=== PATIENT | female | born 1955 | race Caucasian/White ===

== ENCOUNTER 2018-07-27 16:15 | Emergency (ER) | payer OTHER, SELFPAY ==
[2018-07-27 16:16] VITALS: BP 168/103; PULSE 100; RESP 16; TEMP 36.3; O2SAT 99; BMI 41.5
--- NOTE | 2018-07-27 16:58 | CT_ITS ---
STUDY: CTA OF THE BRAIN REASON FOR EXAM: Female, 62 years old. Headache with vertigo. RADIATION DOSAGE (If Supplied By Facility): CTDIvol = ( 28.57 ) mGy, DLP = ( 1565.22 ) mGycm TECHNIQUE: CT angiography was performed with a multi-detector CT scanner. Data acquisition was obtained from the skull base through the vertex following intravenous administration of ml of . MIP images were reconstructed from the axial data set. Post-processing of the angiographic images was performed, with multiplanar reformation and 3D reconstruction. Individualized dose optimization techniques were used for this CT. COMPARISON: None. FINDINGS: CT brain: There is no intracranial mass, hemorrhage, or acute territorial infarct. There is moderate to marked mucosal thickening in the frontal, ethmoid, sphenoid, and maxillary sinuses. CTA brain: Normal bilateral petrous carotid arteries. Normal right cavernous carotid artery with a normal supraclinoid bifurcation. Normal left cavernous carotid artery with a normal supraclinoid bifurcation. A1 segment of the right anterior cerebral artery is hypoplastic. Normal left A1 segments of the anterior cerebral artery. Normal intact anterior communicating artery (ACOM). Normal bilateral A2 segments of the anterior cerebral arteries. Normal right M1 and M2 segments of the middle cerebral arteries, with a normal M1 bifurcation. Normal left M1 and M2 segments of the middle cerebral arteries, with a normal M1 bifurcation. There is non-visualization of the right posterior communicating artery (PCOM). Normal left posterior communicating artery (PCOM). Normal bilateral vertebral arteries. Normal basilar artery with a normal basilar bifurcation. The visualized bilateral superior cerebellar (SCA) arteries are normal. Normal bilateral P1, P2 and visualized P3 segments of the posterior cerebral arteries. There is no demonstrated aneurysm of the [place]. There is no demonstrated abnormality of the visualized brain. CT/CTA Head W/WO Contrast IMPRESSION: Normal [place] without a demonstrated aneurysm or significant stenosis. Electronically Signed: Ling Arnett MD at 19:07 EDT Tel , Service support ,
--- NOTE | 2018-07-27 16:58 | CT_ITS ---
STUDY: CTA NECK WITH CONTRAST REASON FOR EXAM: Female, 62 years old. Headache with vertigo. RADIATION DOSAGE (If Supplied By Facility): CTDIvol = ( 28.57 ) mGy, DLP = ( 1565.22 ) mGycm TECHNIQUE: CT angiography with multi-detector data acquisition was performed from the aortic arch to the skull base following intravenous administration of 100ML ml of Isovue 370 contrast. MIP images were reconstructed from the axial data set. Post-processing of the angiographic images was performed, with multiplanar reformation and 3D reconstruction. Individualized dose optimization techniques were used for this CT. COMPARISON: None. FINDINGS: AORTIC ARCH: Normal visualized aortic arch. Normal origins of the brachiocephalic, left common carotid, and left subclavian arteries. RIGHT CAROTID ARTERIES: Normal right common carotid artery (CCA). Normal right common carotid bulb. Normal origin of the right internal carotid (ICA) artery without a hemodynamically significant stenosis. Normal visualized cervical portion of the right internal carotid artery. Normal origin of the right external carotid artery (ECA). LEFT CAROTID ARTERIES: Normal left common carotid artery (CCA). Normal left common carotid bulb. There is mild calcified plaque formation of the origin of the left internal carotid artery with no stenosis. Normal visualized cervical portion of the left internal carotid artery. Normal origin of the left external carotid artery (ECA). VERTEBRAL ARTERIES: Normal bilateral vertebral arteries. CT/CTA Neck W/WO Contrast IMPRESSION: Normal bilateral cervical carotid and vertebral arteries. Electronically Signed: Ling Arnett MD at 19:10 EDT Tel , Service support ,
--- NOTE | 2018-07-27 17:35 | ED.VISSUMM ---
- ER Visit Summary Date of Service: 07/27/18 Chief Complaint: Headache, vertigo History of Present Illness: The patient is a 62 F presenting with headache, vertigo. She states it started on July 14. She woke up with vertigo symptoms. She was seen by Dr. Ocasio that day. She had Marcelle maneuver performed and was put on meclizine. She states that this improved her symptoms but it continued. Her headache persisted. She took a friend's Valium which also improved her vertigo. She continues to have the headache. She went to urgent care today and was sent to the ED for further evaluation. She states that the vertigo is positional and worsens when she leans forward or turns her head. She denies fever or neck pain. Denies numbness or weakness. Denies vision or speech changes. Physical Examination: Vitals are stable. Patient is afebrile. Alert no acute distress. HEENT exam is unremarkable. Neck is supple. No meningismus Lungs are clear and equal bilaterally. Heart is regular rate and rhythm. Abdomen is soft nontender nondistended. Extremities are unremarkable. Skin is warm and dry. No focal neurologic deficit. Normal strength and sensation. NIH 0. Remainder of exam is unremarkable. Emergency Department Course and Treatment: Patient was given Reglan, Benadryl IV. She was given Valium p.o. CTA head shows normal [place] without a demonstrated aneurysm or significant stenosis. CTA neck shows normal bilateral cervical carotid and vertebral arteries. On reevaluation, patient has improvement of her symptoms. She is given a prescription for short course of Valium. She is advised to follow-up with Dr. Ocasio and her primary care physician. Advised return to ED if worsening complaints. Disposition: Discharge home Impression: Headache, positional vertigo This note was generated with [employer] dictation software. It may contain incorrect words, spelling, and punctuation that were not noted in review of the chart prior to signing ED Disposition - Plan for ED Patient: Chief Complaint: Headache Instructions: ED BPV Vertigo, ED Cephalgia Unspecified Prescriptions: Diazepam [Valium] 2 mg PO TID PRN PRN #10 tablet PRN Reason: Vertigo Referrals: Yesenia Suárez MD [Primary Care Provider] -
--- NOTE | 2018-07-27 17:38 | ED.DCSUM_ITS ---
- ER Visit Summary Date of Service: 07/27/18 Chief Complaint: Headache, vertigo History of Present Illness: The patient is a 62 F presenting with headache, vertigo. She states it started on July 14. She woke up with vertigo symptoms. She was seen by Dr. Ocasio that day. She had Marcelle maneuver perform ed and was put on meclizine. She states that this improved her symptoms but it continued. Her headache persisted. She took a friend's Valium which also improved her vertigo. She continues to have the headache. She went to urgent care today and was sent to the ED for further evaluation. She states that the vertigo is positional and worsens when she leans forward or turns her head. She denies fever or neck pain. Denies numbness or weakness. Denies vision or speech changes. Physical Examination: Vitals are stable. Patient is afebrile. Alert no acute distress. HEENT exam is unremarkable. Neck is supple. No meningismus Lungs are clear and equal bilaterally. Heart is regular rate and rhythm. Abdomen is soft nontender nondistended. Extremities are unremarkable. Skin is warm and dry. No focal neurologic deficit. Normal strength and sensation. NIH 0. Remainder of exam is unremarkable. Emergency Department Course and Treatment: Patient was given Reglan, Benadryl IV. She was given Valium p.o. CTA head shows normal [place] without a demonstrated aneurysm or significant stenosis. CTA neck shows normal bilateral cervical carotid and vertebral arteries. On reevaluation, patient has improvement of her symptoms. She is given a prescription for short course of Valium. She is advised to follow-up with Dr. Ocasio and her primary care physician. Advised return to ED if worsening complaints. Disposition: Discharge home Impression: Headache, positional vertigo This note was generated with [employer] dictation software. It may contain incorrect words, spelling, and punctuation that were not noted in review of the chart prior to signing ED Disposition - Plan for ED Patient: Chief Complaint: Headache Instructions: ED BPV Vertigo, ED Cephalgia Unspecified Prescriptions: Diazepam [Valium] 2 mg PO TID PRN PRN #10 tablet PRN Reason: Vertigo Referrals: Yesenia Suárez MD [Primary Care Provider] -
[2018-07-27] MEDS: Metoclopramide 10 MG/2 ML Vial 5 MG IV (17:47)
[2018-07-27] MEDS: DiphenhydrAMINE 50 MG/ML Syringe 25 MG IV (17:49)
[2018-07-27] MEDS: diazePAM 5 MG Tablet PO (17:52)
[2018-07-27 18:15] LABS: Anion Gap 6 (5-15); BUN 20 mg/dL (7-18); Calcium,Total 9.3 mg/dL (8.5-10.1); Chloride 105 mmol/L (98-107); Creatinine, Serum 0.95 mg/dL (0.55-1.02); EST Glomerular Filtration Rate 63 mL/min (>60); Est Glom Filt Rate - Afr Amer 76 mL/min (>60); Estimated Creatinine Clearance 59.71 ml/min; Glucose 127 mg/dL (74-106); Potassium 3.6 mmol/L (3.5-5.1); Sodium Level 138 mmol/L (136-145)
--- NOTE | 2018-07-27 19:39 | ED.DEP ---
ED Disposition - Plan for ED Patient: Chief Complaint: Headache Instructions: ED Cephalgia Unspecified, ED BPV Vertigo Prescriptions: Diazepam [Valium] 2 mg PO TID PRN PRN #10 tablet PRN Reason: Vertigo Referrals: Yesenia Suárez MD [Primary Care Provider] -
[2018-07-27 19:57] VITALS: BP 183/91; PULSE 80; RESP 17; O2SAT 96
--- NOTE | 2018-07-27 19:58 | ED.RN ---
IV DC'ED, CATHETER INTACT, SMALL GAUZE DRESSING PLACED. DISCHARGE INSTRUCTIONS GIVEN TO AND REVIEWED WITH PATIENT, PATIENT DENIES QUESTIONS OR CONCERNS AND VOICES UNDERSTANDING OF DISCHARGE INSTRUCTIONS. PT AMBULATES OUT OF ROOM WITHOUT DIFFICULTY.
== END 2018-07-27 19:58 | disposition home or self-care (01) ==
LOC: ED 17:16
PROVIDERS: Emergency Provider Emergency Medicine; Family Provider Internal Medicine; PCP Internal Medicine
DX: R51 Headache (principal); H81.10 Benign paroxysmal vertigo, unspecified ear; I10 Essential (primary) hypertension; J45.909 Unspecified asthma, uncomplicated; Z79.899 Other long term (current) drug therapy
CPT/HCPCS: 70496; 70498; 80048; 96374; 96375; 99284; Q9967; A4216

== ENCOUNTER 2019-07-18 09:28 | Emergency (ER) | payer OTHER, SELFPAY ==
[2019-07-18 09:29] VITALS: BP 160/60; PULSE 112; RESP 17; TEMP 37.1; O2SAT 97; BMI 42.7
--- NOTE | 2019-07-18 09:39 | RAD_ITS ---
STUDY: X-RAY CHEST REASON FOR EXAM: Female, 63 years old. One-day history of chest tightness. TECHNIQUE: Single AP portable view of the chest. COMPARISON: Comparison is made with prior examination dated February 19, 2015. FINDINGS: EKG electrode are seen. Mild degree of increased linear markings at the left lung base suggestive of linear atelectasis and/or scarring. There is no demonstrated pleural abnormality. Normal size heart. Normal mediastinum and bull. Normal visualized pulmonary arteries. Normal visualized aortic arch and descending thoracic aorta. Normal visualized thoracic spine. Normal visualized ribs, clavicles, and shoulders. There is no demonstrated abnormality of the visualized soft tissue structures of the upper abdomen. RAD/Chest 1 View (Portable) IMPRESSION: Mild degree of linear atelectasis and/or scarring at the left lung base. Electronically Signed: Scar Cervantes, at 10:33 EDT , Service support ,
--- NOTE | 2019-07-18 09:39 | EKG12_ITS ---
Test Reason : CP Blood Pressure : / mmHG Vent. Rate : 111 BPM Atrial Rate : 111 BPM P-R Int : 100 ms QRS Dur : 088 ms QT Int : 340 ms P-R-T Axes : 018 041 058 degrees QTc Int : 462 ms Sinus tachycardia with short NH Otherwise normal ECG Confirmed by JAVIER FRYE ([id number]), scientific publications editor OANH SUAREZ ([id number]) on 07/21/2019 10:23:16 AM Referred By: LACIE/MISSY Confirmed By:JAVIER FRYE
--- NOTE | 2019-07-18 09:49 | ED.VISSUMM ---
- ER Visit Summary Date of Service: 07/18/19 Chief Complaint: Chest pain History of Present Illness: The patient is a 63 F with chest pain. The pain is in her epigastric region and lower retrosternal region. It radiates around her bilateral inferior ribs to the back. It started yesterday at 1230. It got worse throughout the day and overnight. She had trouble sleeping. She had some nausea. Nothing seemed to bring this on or make it worse. Nothing seems to make it better. Besides the back pain and nausea, she has no other symptoms. She has no history of heart disease. She does have a history of asthma. She is compliant with her regimen. She denies any respiratory or asthma symptoms. Denies any history of liver, gallbladder, pancreas pathology. She has occasional acid reflux, but this is not consistent with that. No history of PE or aortic disease. Denies any history of kidney disease, stones, or hematuria. Physical Examination: Afebrile and vital signs unremarkable except for heart rate of 112. The patient appears nontoxic and in no acute distress. Skin is normal without diaphoresis or pallor or jaundice. Heart tachycardic regular. Lungs clear. Abdomen soft and nontender. Extremities nontender with no edema. Test Results: EKG showed sinus rhythm at a rate of 111. No sign of acute ischemia or infarction pattern. CBC, CMP, lipase, troponin, chest x-ray pending. Emergency Department Course and Treatment: Patient has an aspirin allergy. She was placed on a monitor. Will treat with Zofran and a GI cocktail. Will reassess. CBC, CMP, lipase unremarkable. Troponin normal. Chest x-ray showed left base scarring versus atelectasis. Right upper quadrant ultrasound showed hepatomegaly and a right renal cyst. Delta troponin was normal. Patient treated with GI cocktail, Zofran, morphine. Pain is improved. She is low risk for ACS. Appropriate for outpatient follow-up. No further emergent testing is indicated. Nothing to indicate hospitalization, further evaluation, or consultation. Patient will follow-up as an outpatient. Return for any new or worsening issues. Treatment Plan: As above Disposition: Discharged Impression: 1. Epigastric pain This note was generated with [employer] software. It may contain incorrect words, spelling, and punctuation that were not noted in review of the chart prior to signing ED Disposition - Plan for ED Patient: Referrals: Yesenia Suárez MD [Primary Care Provider] -
[2019-07-18 10:15] LABS: Absolute Lymphocyte Count 0.94 X10^3/uL (0.83-4.51); Absolute Neutrophil Count 9.1 X10^3/uL (2.0-7.7); Basophil# 0.04 X10^3/uL; Basophil% 0.4 % (0-1); Eosinophil# 0.13 X10^3/uL; Eosinophils% 1.2 % (0-5); Hematocrit 43.9 % (37-47); Lymphocyte # 0.94 X10^3/ul (4.0); Lymphocyte % 8.8 % (19-41); Mean Corp Hgb Conc 31.9 g/dL (32-36); Mean Corpuscular Hgb 26.1 pg (27.0-32.0); Mean Corpuscular Volume 81.9 fL (81-99); Mean Platelet Vol. 9.1 fl (6.2-12.0); Monocyte# 0.44 X10^3/uL; Monocyte% 4.1 % (0-10); NRBC Flagged by Analyzer 0 % (0-5); Neutrophil # 9.13 X10^3/uL (2.7-7.7); Platelet Count 282 K/mm3 (150-450); RBC Distribution Width CV 13.8 % (11.6-14.6); RBC Distribution Width SD 40.8 fl (35.1-43.9); Red Blood Count 5.36 M/mm3 (4.2-5.4); White Blood Count 10.7 K/mm3 (4.4-11.0)
[2019-07-18 10:36] LABS: ALB/GLOB Ratio 0.9 RATIO (0.9-2.4); AST(SGOT) 8 U/L (15-37); Alanine Aminotransfer ALT/SGPT 18 U/L (13-56); Albumin, Serum 3.8 g/dL (3.2-5.0); Alkaline Phosphatase 125 U/L (45-117); Anion Gap 8 (5-15); BUN 17 mg/dL (7-18); BUN/Creat Ratio 18.8 RATIO (10-20); Calcium,Total 9.5 mg/dL (8.5-10.1); Chloride 104 mmol/L (98-107); EST Glomerular Filtration Rate 67 mL/min (>60); Est Glom Filt Rate - Afr Amer 81 mL/min (>60); Estimated Creatinine Clearance 59.89 ml/min; Globulin 4.1 g/dL (2.2-4.2); Glucose 151 mg/dL (74-106); Lipase 105 U/L (73-393); Potassium 3.5 mmol/L (3.5-5.1); Protein, Total 7.9 g/dL (6.4-8.2); Sodium Level 136 mmol/L (136-145)
[2019-07-18] MEDS: 0.9% Normal Saline 1,000 ML 1000 ML IV (10:46)
[2019-07-18] MEDS: Ondansetron 4 MG/2 ML Vial IV (10:50)
[2019-07-18] MEDS: Mag Hydrox/Al Hydrox/Simeth 30 ML UDC PO (10:50)
--- NOTE | 2019-07-18 11:20 | US_ITS ---
STUDY: ABDOMINAL ULTRASOUND - RIGHT UPPER QUADRANT REASON FOR VISIT: Female, 63 years old epigastric and right upper quadrant pain TECHNIQUE: Ultrasound evaluation of the right upper quadrant was performed with real-time and static taylor-scale imaging. TECHNICAL QUALITY: Limited. Examination limited by bowel gas. COMPARISON: None. FINDINGS: Liver: The liver measures 22.1 cm. There is increased echogenicity consistent with fatty infiltration. The bile ducts are within normal limits. There is hepatic color flow. The direction of portal flow is hepatopetal. There is no demonstrated mass lesion. Gallbladder: Normal distended gallbladder. The gallbladder wall measures 2.6 mm. There is a negative sonographic Martinez's sign. There is no pericholecystic fluid. There are no gallstones. Common Bile Duct (C.B.D.): The common bile duct measures 2.7 mm. Pancreas: Normal size of the head, body and tail of the pancreas. There is normal echogenicity of the pancreas. There is no demonstrated pancreatic mass or cyst. Right Kidney: Normal size of the right kidney. The right kidney measures 12.5 x 5.8 x 5.4 cm. Normal renal cortex. The right cortex measures 1.7 cm. There is a simple 1.2 cm cyst There is no right hydronephrosis. US/Gallbladder IMPRESSION: Hepatomegaly with diffuse fatty infiltration, no discrete lesion Simple right renal cyst Electronically Signed: Jose Patel MD at 14:26 EDT , Service support ,
--- NOTE | 2019-07-18 13:08 | NURSING ---
AWARE OF TROPONIN.
--- NOTE | 2019-07-18 15:12 | ED.DEP ---
ED Disposition - Plan for ED Patient: Instructions: EPIGASTRIC PAIN (Uncertain cause) Prescriptions: Ondansetron [Zofran Odt] 4 mg PO Q8H PRN PRN #10 tab PRN Reason: Nausea Prescription Printed Referrals: Yesenia Suárez MD [Primary Care Provider] -
[2019-07-18 15:23] VITALS: BP 144/71; PULSE 108; RESP 18; O2SAT 96
== END 2019-07-18 15:26 | disposition home or self-care (01) ==
LOC: ED 09:53
PROVIDERS: Emergency Provider Emergency Medicine; Family Provider Internal Medicine; PCP Internal Medicine
DX: R10.13 Epigastric pain (principal); N28.1 Cyst of kidney, acquired; K76.0 Fatty (change of) liver, not elsewhere classified; I10 Essential (primary) hypertension; J45.909 Unspecified asthma, uncomplicated; Z79.899 Other long term (current) drug therapy
CPT/HCPCS: 71045; 76705; 80053; 83690; 84484; 85025; 93005; 96361; 96374; 99285; J7030; A4216; J2405

== ENCOUNTER → 2019-12-07 16:32 | Outpatient (CLI) | payer BC, SELFPAY | PROVIDERS: PCP Internal Medicine; Referring Provider Otolaryngology Otolaryngology/Facial Plastic Surgery; Visit Provider Otolaryngology Otolaryngology/Facial Plastic Surgery | DX: J32.9 Chronic sinusitis, unspecified (principal) | CPT/HCPCS: 87070; 87077; 87205 ==

== ENCOUNTER 2020-12-12 11:21 | Outpatient (RCR) | payer MEDICARE, SELFPAY ==
[2020-12-12] MEDS: COVID-19 VACC, MRNA(PFIZER)/PF 30 MCG/0.3 ML SYRINGE IM (15:29)
[2021-01-02] MEDS: COVID-19 VACC, MRNA(PFIZER)/PF 30 MCG/0.3 ML SYRINGE IM (15:12)
== END 2021-03-11 23:59 ==
LOC: IMMUN 11:21
PROVIDERS: PCP Internal Medicine; Referring Provider Family Medicine; Visit Provider Family Medicine
DX: Z23 Encounter for immunization (principal)
CPT/HCPCS: 0001A; 0002A; 91300

== ENCOUNTER 2022-04-21 22:36 | Emergency (ER) | payer MEDICARE, SELFPAY ==
[2022-04-21 22:37] VITALS: BP 145/75; PULSE 87; RESP 16; TEMP 35.8; O2SAT 97; BMI 40.3
--- NOTE | 2022-04-21 22:39 | CT_ITS ---
INDICATION: Trauma EXAMINATION: CT BRAIN - CT Head or Brain W/O Contrast Injection TECHNIQUE: Multiple axial images were obtained of the head without intravenous contrast. A radiation dose optimization technique was used for this scan. IV Contrast dosage and agent: None. COMPARISON: FINDINGS: BRAIN PARENCHYMA: No intra- or extra-axial hemorrhage. No intracranial mass or mass effect. Yoon/white matter differentiation is maintained and there is no blurring of the basal ganglia. There is no hyperdense vessel. Posterior fossa structures are unremarkable. CSF SPACES: Appropriate for age. No hydrocephalus. Basal cisterns are patent. CALVARIUM, SKULL BASE, PARANASAL SINUSES AND MASTOID AIR CELLS: Extensive opacification of the ethmoid air cells, maxillary sinuses and sphenoid sinuses with partial opacification frontal sinuses and mostly opacified frontoethmoidal recesses. This is chronic sinus disease with extensive sinus wall sclerotic thickening of the maxillary sinuses. There is evidence of prior functional endoscopic sinus surgery. No air-fluid levels. Mastoid air cells and middle ears are normally aerated. No discrete lytic or blastic abnormalities. Intact calvarium and skull base. Mild soft tissue thickening and increased density preseptal, periorbital soft tissues suggesting contusion. Probable small contusion anterior right frontal scalp. ORBITS: Both globes, extraocular muscles, optic nerves and retrobulbar fat appear unremarkable. ASPECTS Score for Acute Strokes: 10 CT/Brain/Head without Contrast IMPRESSION: No acute intracranial pathology. Chronic, significant paranasal sinus disease. Right periorbital and right frontal scalp region soft tissue contusions. Intact calvarium and skull base. Electronically Signed: Gumaro Menezes DO at 23:46 EDT ,
--- NOTE | 2022-04-21 22:41 | EDS_ITS ---
HPI HPI - Fall History of Present Illness Chief Complaint: Fall Informant: patient and EMS Narrative Narrative: Patient presents with sore right knee after a fall. This occurred about 6-1/2 hours ago. She was walking down steps. She has a history of vertigo. She lost footing and fell. She she did not lose consciousness at any time. No palpitations. She did hit her head. She has mild headache really locally where she hit around the right eye. The reason she came in now is that her right knee is still hurting and she has developed some nausea. She does not have vomiting. No numbness tingling weakness. She has pain every time she puts weight on her right knee. No pain of upper extremities left lower extremities or either hip. She denies being on any anticoagulation. [facility] Medical History Asthma HTN (hypertension) Home Medications fluticasone 500 mcg-salmeterol 50 mcg/dose blistr powdr for inhalation (Advair Diskus) 1 puff inhalation DAILY 02/19/15 [History Last Taken 07/27/18] loratadine 10 mg tablet (Allergy Relief (loratadine)) 10 mg PO DAILY 02/19/15 [History Last Taken 07/27/18] tramadol 50 mg tablet 50 mg PO Q6H PRN PRN Pain 02/19/15 [History Last Taken Unknown] bupropion HCl 300 mg 24 hr tablet, extended release (Wellbutrin XL) 300 mg PO DAILY 07/27/18 [History Last Taken Unknown] diazepam 2 mg tablet 2 mg PO TID PRN PRN Vertigo ##10 07/27/18 [Rx Last Taken Unknown] hydrochlorothiazide 12.5 mg capsule 12.5 mg PO DAILY 07/27/18 [History Last Taken 07/27/18] verapamil 240 mg 24 hr capsule,extended release 360 mg PO DAILY 07/27/18 [History Last Taken 07/27/18] ondansetron 4 mg disintegrating tablet 4 mg PO Q8H PRN PRN Nausea #10 tabs 07/18/19 [Rx Last Taken Unknown] Allergy/AdvReac Type Severity Reaction Status Date / Time aspirin Allergy Severe Anaphylaxis Verified 07/18/19 09:34 amoxicillin Allergy Intermediate Rash Verified 07/18/19 09:34 ANY ANTI-INFLAMATORY Allergy Severe Anaphylaxis Uncoded 07/18/19 09:34 Social History Smoking Status: Never smoker ROS ROS ED Constitutional Constitutional ED: Denies fever(s) or subjective Eyes Eyes: Reports other Details: She has some swelling of the lids on the right. However, when opening the eyes her vision is normal to her. ; Denies change in vision ENT ENT ED: Reports other Details: She does have some soreness around the nose on the right side. She is able to breathe through it well. No bleeding. No other areas of facial pain. ; Denies rhinorrhea Cardiovascular Cardiovascular: Denies chest pain, palpitations or racing heartbeat Respiratory/Chest Respiratory/Chest: Denies cough or dyspnea Gastrointestinal Gastrointestinal: Reports nausea; Denies abdominal pain, constipation, diarrhea, melena or vomiting Genitourinary Genitourinary ED: Denies dysuria or hematuria Musculoskeletal Musculoskeletal: Reports other Details: See history of present illness ; Denies back pain or neck pain Integumentary Reports Abrasions Neurologic Neurologic: Reports headache(s); Denies paresthesias or weakness Endocrine Endocrinology: Denies polydipsia or polyuria Hematologic/Lymphatic Hematologic/Lymphatic: Denies easy bleeding or easy bruising Allergic/Immunologic Allergic/Immunologic ED: Denies other EXAM Physical Exam Const Vital Signs: 04/21/22 22:37 Temperature 96.5 F L Temperature Source Temporal Pulse Rate 87 Respiratory Rate 16 Blood Pressure 145/75 H Blood Pressure Mean 98 Pulse Ox 97 Oxygen Delivery Method Room Air Positive well nourished and well developed General Appearance ED: well developed and NAD HEENT HEENT Narrative: Patient has what looks to be a very superficial laceration on the lateral right eyelid that really does not open up at all. There is some contusion in this area and some slight contusion to the medial side of the nose at the upper end. No septal hematoma or signs of dried blood. Eyes EOMs intact bilaterally Eyes Narrative: I am able to look at the eye. She has a very slight subconjunctival hemorrhage on the lateral aspect of the right eye. The pupillary function is normal. Range of motion is normal. No limitation of upward gaze. Neck full ROM General: Negative for tenderness Chest Wall inspection of chest normal Resp normal respiratory effort and no retractions Auscultation: Negative for rales, rhonchi or wheezes Cardio regular rate, regular rhythm and no murmurs Rate: Negative for bradycardia or tachycardic GI non-tender and non-distended Palpation: soft Back/Spine Cervical Spine: Negative for cervical spine tenderness Thoracic Spine / Upper Back: Negative for thoracic spinal tenderness Lumbar Spine / Lower Back: Negative for lumbar spinal tenderness Extremity Extremity Narrative: She has abrasion and contusion to the anterior right knee. There is some swelling locally. Due to her discomfort, we did not put this through range of motion pending x-rays. Neuro oriented x3 Sensorium / Orientation: alert, oriented to person, oriented to place and oriented to time Psych mental status grossly normal Skin Skin Narrative: See above. MDM MDM MDM Narrative Medical decision making narrative: CT of the head showed no acute process. There was what looks to be a nondisplaced patellar fracture. Radiologist recommended CT for definitive evaluation. However, she fell directly on this knee she has contusion and pain at the patella and I think this does not truly represent a fracture. Patient has a small tear of the skin that does not open up on the right upper ey elid. I do not think this needs to be sutured. We will get a knee immobilizer. I explained to the patient that sometimes these patellar fractures will be allowed to heal naturally but sometimes they do need surgery. She will follow-up with orthopedics. We will give her medicine for pain. She is going to be nonweightbearing and actually already has a walker at home that a family member brought over. She will follow-up with Dr. Son. Of note, this chart was completed in delayed fashion due to prolonged downtime in the computer. Some details may be missed. Radiography Diagnostic Testing: Clinical Impression(s) from Imaging Studies Brain CT 04/21/22 22:39 IMPRESSION: No acute intracranial pathology. Chronic, significant paranasal sinus disease. Right periorbital and right frontal scalp region soft tissue contusions. Intact calvarium and skull base. Electronically Signed: Gumaro Menezes DO at 23:46 EDT , Knee X-Ray 04/21/22 23:11 IMPRESSION: Significant, prepatellar soft tissue swelling. Suspected, nondisplaced patellar fracture. Consider CT for definitive evaluation. Electronically Signed: Gumaro DO Clif at 23:49 EDT , Discharge Plan Triage Chief Complaint: Fall ED Provider: Yanick Mason Dx/Rx/DC Orders Clinical Impression: Fall at home, Fracture, patella Prescriptions: No Action tramadol 50 MG tablet 50 mg PO Q6H PRN PRN (Reason: Pain) Label Comments: pain fluticasone propion-salmeterol [Advair Diskus] 1 PUFF inhaler 1 puff inhalation DAILY Label Comments: breathing loratadine [Allergy Relief (loratadine)] 10 MG tablet 10 mg PO DAILY Label Comments: allergy hydrochlorothiazide 12.5 MG capsule 12.5 mg PO DAILY verapamil 240 MG Cap24h.Pel 360 mg PO DAILY bupropion HCl [Wellbutrin XL] 300 MG Tab.Er.24h 300 mg PO DAILY diazepam 2 MG tablet 2 mg PO TID PRN PRN (Reason: Vertigo) Qty: 10 0RF ondansetron 4 MG tablet 4 mg PO Q8H PRN PRN (Reason: Nausea) Qty: 10 0RF Primary Care Provider: Yesenia Suárez Referrals: Yesenia Suárez MD [Primary Care Provider] - Disposition Disposition: Home, Self Care Discharge Date/Time: 04/22/22 01:31
[2022-04-21] MEDS: Ondansetron ODT 4 MG Tablet PO (22:51)
[2022-04-21] MEDS: oxyCODONE 5 MG Tablet PO (22:51)
--- NOTE | 2022-04-21 23:11 | RAD_ITS ---
INDICATION: Trauma EXAMINATION/TECHNIQUE: X-RAY - RIGHT XR Knee Complete 4 Views or More 4 VIEWS COMPARISON: None. FINDINGS: SOFT TISSUES: Significant prepatellar soft tissue thickening likely representing contusion. Limited assessment for joint effusion due to mild obliquity and femoral osteophytosis. BONES/JOINTS: Likely nondisplaced fracture involving the patella. No other evidence of traumatic osseous injury. 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 No sclerotic or destructive changes observed. RAD/Knee 4 or More Views IMPRESSION: Significant, prepatellar soft tissue swelling. Suspected, nondisplaced patellar fracture. Consider CT for definitive evaluation. Electronically Signed: Gumaro Menezes DO at 23:49 EDT ,
--- NOTE | 2022-04-22 05:56 | ED.RN ---
SEE DOWNTIME CHARTING
== END 2022-04-22 01:31 | disposition home or self-care (01) ==
PROVIDERS: Emergency Provider Emergency Medicine; PCP Internal Medicine; Visit Provider Emergency Medicine
DX: S82.001A Unspecified fracture of right patella, initial encounter for closed fracture (principal); W19.XXXA Unspecified fall, initial encounter
CPT/HCPCS: 99282; 70450; 73564; 99284

== ENCOUNTER 2022-08-10 02:30 | Emergency (ER) | payer MEDICARE, SELFPAY ==
[2022-08-10 02:31] VITALS: BP 211/97; PULSE 121; RESP 25; TEMP 37.2; O2SAT 93; BMI 39.8
[2022-08-10 02:34] VITALS: BP 211/97; PULSE 121; RESP 24; TEMP 37.2; O2SAT 95
--- NOTE | 2022-08-10 02:43 | RAD_ITS ---
STUDY: X-RAY CHEST REASON FOR EXAM: Female, 66 years old. Sob TECHNIQUE: Single AP portable view of the chest. COMPARISON: July 18, 2019 chest x-ray FINDINGS: The lungs are clear and expanded. There is no demonstrated pleural abnormality. Normal size heart. Normal mediastinum and bull. Normal visualized pulmonary arteries. Normal visualized aortic arch and descending thoracic aorta. Normal visualized thoracic spine. Normal visualized ribs, clavicles, and shoulders. There is no demonstrated abnormality of the visualized soft tissue structures of the upper abdomen. RAD/Chest 1 View (Portable) IMPRESSION: Normal x-ray examination of the chest. Electronically Signed: Pilar Dobbs MD at 3:54 EST Reading Location ID and State: [facility] / [place] Tel , Service support ,
--- NOTE | 2022-08-10 02:44 | EKG12_ITS ---
Test Reason : SOB Blood Pressure : / mmHG Vent. Rate : 108 BPM Atrial Rate : 108 BPM P-R Int : 140 ms QRS Dur : 088 ms QT Int : 342 ms P-R-T Axes : 073 070 061 degrees QTc Int : 458 ms Sinus tachycardia Nonspecific ST abnormality Abnormal ECG Confirmed by ALICIA JOEL, GILEMR ([id number]), newspaper or periodical editor MOON HERNANDEZ ([id number]) on 08/12/2022 11:35:21 AM Referred By: CARINE Confirmed By:GILMER VARGAS MD
--- NOTE | 2022-08-10 02:46 | EDS_ITS ---
HPI History of Present Illness Chief Complaint: Shortness of Breath Informant: patient Onset/Context/Timing Onset: Days Context: Gradual Onset Current Severity: Moderate Maximum Severity: Moderate Narrative Narrative: Patient presents with shortness of breath secondary to asthma. She states she felt like she was getting a sinus infection. She went to urgent care on Wednesday and while there about her sinus infection mentioned to the provider that her lungs were slightly tight consistent with a mild asthma flare for the past few days. She was given prednisone and doxycycline. Patient states in spite of this she feels that she is not improving. She is using albuterol inhaler along with Advair. She does have some nebulized medicine but states it is and she is not sure if it is doing her any good. She has had fever. She is coughing up yellow sputum. [facility] Medical History Asthma HTN (hypertension) Home Medications fluticasone 500 mcg-salmeterol 50 mcg/dose blistr powdr for inhalation (Advair Diskus) 1 puff inhalation DAILY 02/19/15 [History Last Taken 07/27/18] loratadine 10 mg tablet (Allergy Relief (loratadine)) 10 mg PO DAILY 02/19/15 [History Last Taken 07/27/18] tramadol 50 mg tablet 50 mg PO Q6H PRN PRN Pain 02/19/15 [History Last Taken Unknown] bupropion HCl 300 mg 24 hr tablet, extended release (Wellbutrin XL) 300 mg PO DAILY 07/27/18 [History Last Taken Unknown] diazepam 2 mg tablet 2 mg PO TID PRN PRN Vertigo ##10 07/27/18 [Rx Last Taken Unknown] hydrochlorothiazide 12.5 mg capsule 12.5 mg PO DAILY 07/27/18 [History Last Taken 07/27/18] verapamil 240 mg 24 hr capsule,extended release 360 mg PO DAILY 07/27/18 [History Last Taken 07/27/18] ondansetron 4 mg disintegrating tablet 4 mg PO Q8H PRN PRN Nausea #10 tabs 07/18/19 [Rx Last Taken Unknown] albuterol sulfate 2.5 mg/3 mL (0.083 %) solution for nebulization 2.5 mg (3 mL) inhalation Q4H PRN #25 vials 08/10/22 [Rx Last Taken Unknown] albuterol sulfate 90 mcg/actuation aerosol inhaler (Ventolin HFA) 2 puff inhalation Q4H PRN PRN Wheezing ##1 08/10/22 [Rx Last Taken Unknown] doxycycline monohydrate 100 mg capsule 100 mg PO BID #3 caps 08/10/22 [Rx Last Taken Unknown] prednisone 10 mg tablet See Taper PO DAILY #63 tabs 08/10/22 [Rx Last Taken Unknown] Allergy/AdvReac Type Severity Reaction Status Date / Time aspirin Allergy Severe Anaphylaxis Verified 08/10/22 02:33 amoxicillin Allergy Intermediate Rash Verified 08/10/22 02:33 ANY ANTI-INFLAMATORY Allergy Severe Anaphylaxis Uncoded 08/10/22 02:33 Social History Smoking Status: Never smoker ROS ROS ED Constitutional Constitutional ED: Reports fever(s) and sweats; Denies chills Eyes Eyes: Denies change in vision or discharge from eye(s) ENT ENT ED: Denies discharge from eye(s), rhinorrhea or sore throat Cardiovascular Cardiovascular: Reports chest pain; Denies palpitations Respiratory/Chest Respiratory/Chest: Reports cough, dyspnea and sputum Gastrointestinal Gastrointestinal: Denies abdominal pain, nausea or vomiting Genitourinary Genitourinary ED: Denies dysuria Musculoskeletal Musculoskeletal: Denies back pain or extremity pain Integumentary Denies Abrasions or rash Neurologic Neurologic: Denies headache(s) or weakness Allergic/Immunologic Allergic/Immunologic ED: Denies lip swelling or urticaria EXAM Physical Exam Const Vital Signs: 08/10/22 02:31 08/10/22 02:34 08/10/22 02:58 Temperature 98.9 F 98.9 F Temperature Source Temporal Temporal Pulse Rate 121 H 121 H Respiratory Rate 25 H 24 H Respiratory Effort Short of Breath Respiratory Pattern Tachypnea Blood Pressure 211/97 H 211/97 H Blood Pressure Mean 135 135 Pulse Ox 93 95 Oxygen Delivery Method Room Air Room Air Room Air 08/10/22 02:59 08/10/22 03:09 08/10/22 04:08 Temperature Temperature Source Pulse Rate 110 H 108 H 107 H Respiratory Rate 26 H 20 H 17 Respiratory Effort Respiratory Pattern Tachypnea Tachypnea Normal Blood Pressure Blood Pressure Mean Pulse Ox Oxygen Delivery Method 08/10/22 05:00 Temperature Temperature Source Pulse Rate 111 H Respiratory Rate 18 Respiratory Effort Respiratory Pattern Blood Pressure 189/70 H Blood Pressure Mean Pulse Ox 96 Oxygen Delivery Method Positive well nourished and well developed General Appearance ED: well developed HEENT Reports normocephalic and head/scalp atraumatic Eyes PERRL and EOMs intact bilaterally Neck supple Chest Wall inspection of chest normal and palpation of chest normal Resp Resp Narrative: Tachypnea with expiratory wheezes throughout. Speaking in 4-5 word sentences. Cardio regular rhythm Rate: tachycardic GI normal to inspection, nondistended, normoactive bowel sounds Palpation: soft Extremity normal to inspection Neuro oriented x3 and no sensory deficits noted Sensorium / Orientation: alert Motor Exam: strength 5/5 throughout Psych mental status grossly normal Skin no rashes or lesions noted MDM MDM MDM Narrative Medical decision making narrative: Patient is given DuoNeb and 2 albuterol treatments. She is already on 40 mg of prednisone daily. EKG and chest x-ray ordered. Radiography Chest X-Ray - ED: 1 View, Read by ED Physician, Normal, Heart, Lungs and Mediastinum Diagnostic Testing: Clinical Impression(s) from Imaging Studies Chest X-Ray 08/10/22 02:43 IMPRESSION: Normal x-ray examination of the chest. Electronically Signed: Pilar Dobbs MD at 3:54 EST Reading Location ID and State: [address] [place] [address] Tel , Service support , EKG Initial EKG: Attestation: I personally reviewed and interpreted this EKG as follows: Interpretation: Sinus Tachycardia (Sinus tach at 108. No acute ischemia.) Treatment and Re-Evaluation Narrative: On repeat evaluation patient does continue to have expiratory wheezes, but improved air movement is noted. Heart rate and blood pressure are both improving. Chest x-ray per my interpretation reveals no focal infiltrate. Radiology interpretation is reviewed. Additional DuoNeb treatment and albuterol are provided. On final repeat exam heart rate is around 105. Lung sounds are improved but she still does have some wheezing. She was initially written for a 7-day course of doxycycline. I will write her for 3 additional days for a total of 10-day treatment. She was given a 5-day burst of steroids, however given the degree of her current flare I will write her for a prednisone taper. I will write her for nebulizer solution as well as another MDI. Return instructions are provided. Addendum: Patient's blood pressure was noted to be elevated here. She states she does take blood pressure medication and is compliant. Her blood pressure usually runs in the 160s. At the time of discharge her systolic blood pressure was in the 170s to low 180s. Discharge Plan Triage Chief Complaint: Shortness of Breath ED Provider: Magalie Morales Dx/Rx/DC Orders Clinical Impression: Asthma exacerbation Instructions: ED Asthma, Acute (Adult), ED Inhaler Use Prescriptions: New albuterol sulfate 2.5 mg /3 mL (0.083 %) solution for nebulization 2.5 mg inhalation Q4H PRN Qty: 25 0RF Rx Instructions: Use q4 hours and PRN for wheezing albuterol sulfate [Ventolin HFA] 90 mcg/actuation HFA aerosol inhaler 2 puff inhalation Q4H PRN PRN (Reason: Wheezing) Qty: 1 0RF prednisone 10 mg tablet See Taper PO DAILY Qty: 63 0RF Taper: Prednisone Taper 60 mg WITH BREAKFAST for 3 Days and 0 Hour 50 mg WITH BREAKFAST for 3 Days and 0 Hour 40 mg WITH BREAKFAST for 3 Days and 0 Hour 30 mg WITH BREAKFAST for 3 Days and 0 Hour 20 mg WITH BREAKFAST for 3 Days and 0 Hour 10 mg WITH BREAKFAST for 3 Days and 0 Hour Rx Instructions: Taper: 60mg x 3d, 50mg x3d, 40mg x3d, 30mg x3d, 20mg x3d, 10mg x3d doxycycline monohydrate 100 mg capsule 100 mg PO BID Qty: 3 0RF No Action tramadol 50 MG tablet 50 mg PO Q6H PRN PRN (Reason: Pain) Label Comments: pain fluticasone propion-salmeterol [Advair Diskus] 1 PUFF inhaler 1 puff inhalation DAILY Label Comments: breathing loratadine [Allergy Relief (loratadine)] 10 MG tablet 10 mg PO DAILY Label Comments: allergy hydrochlorothiazide 12.5 MG capsule 12.5 mg PO DAILY verapamil 240 MG capsule,ext rel. pellets 24 hr 360 mg PO DAILY bupropion HCl [Wellbutrin XL] 300 MG tablet extended release 24 hr 300 mg PO DAILY diazepam 2 MG tablet 2 mg PO TID PRN PRN (Reason: Vertigo) Qty: 10 0RF ondansetron 4 MG tablet 4 mg PO Q8H PRN PRN (Reason: Nausea) Qty: 10 0RF Primary Care Provider: Yesenia Suárez Referrals: Yesenia Suárez MD [Primary Care Provider] - 3-5 Days if not improving Disposition Disposition: Home, Self Care Discharge Date/Time: 08/10/22 05:02
[2022-08-10] MEDS: Ipratropium/Albuterol Sulfate 3 ML AMPUL.NEB INHALATION ×2 (02:55→04:06)
[2022-08-10] MEDS: Albuterol 2.5 MG/3 ML VIAL.NEB. INHALATION ×3 (02:58→04:03)
[2022-08-10 02:59] VITALS: PULSE 110; RESP 26
[2022-08-10 03:09] VITALS: PULSE 108; RESP 20
[2022-08-10 04:08] VITALS: PULSE 107; RESP 17
[2022-08-10 05:00] VITALS: BP 189/70; PULSE 111; RESP 18; O2SAT 96
== END 2022-08-10 05:02 | disposition home or self-care (01) ==
PROVIDERS: Emergency Provider Emergency Medicine; PCP Internal Medicine; Visit Provider Emergency Medicine
DX: J45.901 Unspecified asthma with (acute) exacerbation (principal)
CPT/HCPCS: 71045; 93005; 94640; 99283; A4216

== ENCOUNTER 2023-03-22 10:24 | Outpatient (RCR) | payer MEDICARE, SELFPAY | END 2023-03-22 19:00 | disposition home or self-care (01) | LOC: PT 10:24 | PROVIDERS: PCP Internal Medicine; Referring Provider Physician Assistant Surgical; Visit Provider Physician Assistant Surgical | DX: M70.61 Trochanteric bursitis, right hip (principal); M70.62 Trochanteric bursitis, left hip; M54.16 Radiculopathy, lumbar region | CPT/HCPCS: 97110; 97164 ==

== ENCOUNTER 2024-10-23 07:39 | Emergency (ER) | payer MEDICARE, SELFPAY ==
[2024-10-23 07:40] VITALS: BP 170/100; PULSE 103; RESP 8; TEMP 36.6; O2SAT 96; BMI 41.3
--- NOTE | 2024-10-23 08:24 | CT_ITS ---
STUDY: CT BRAIN WITHOUT CONTRAST REASON FOR EXAM: Female, 68 years old. Head trauma. Nasal injury. RADIATION DOSAGE (If Supplied By Facility): CTDIvol = ( 44.99 ) mGy, DLP = ( 846.73 ) mGycm TECHNIQUE: Transaxial CT imaging of the brain was performed without administration of intravenous contrast material. Individualized dose optimization techniques were used for this CT. COMPARISON: Comparison is made with prior CT scan of brain dated April 21, 2022. FINDINGS: Normal soft tissue structures. There is hyperostosis frontalis internus. There is mild cerebral atrophy with widening of the extra-axial spaces and ventricular dilatation. There are areas of decreased attenuation within the white matter tracts of the supratentorial brain, consistent with microvascular disease changes. Normal basal ganglia and thalami. Normal brainstem. Normal cerebellum. There is no intracranial hemorrhage. There are no findings of an acute ischemic infarction. Pansinusitis. Nondisplaced comminuted nasal fracture. CT/Brain/Head without Contrast IMPRESSION: Nondisplaced comminuted nasal fracture. Pansinusitis. Laceration overlying the superior aspect of the nasal bones. Chronic involutional changes of the brain. Electronically Signed: Scar Cervantes MD at 9:41 EST ,
--- NOTE | 2024-10-23 08:24 | CT_ITS ---
STUDY: CT FACIAL BONES WITHOUT CONTRAST REASON FOR EXAM: Female, 68 years old. Facial trauma. Swelling, bruising and laceration. RADIATION DOSAGE (If Supplied By Facility): CTDIvol = ( 29.38 ) mGy, DLP = ( 532.76 ) mGycm TECHNIQUE: The patient was scanned in a multi detector CT scanner. Sagittal and coronal images were reconstructed. Individualized dose optimization techniques were used for this CT. COMPARISON: None. FINDINGS: Soft tissue laceration. Normal orbital saenz and orbital contents. Nondisplaced comminuted nasal fracture. Normal facial bones. Prior sinus surgery with the sinus plasty of the superior medial saenz of both maxillary sinuses. Fullness of the nasal fossa. Pansinusitis. CT/Sinus/Facial Bone IMPRESSION: Comminuted nondisplaced fracture of the nasal bones. Pansinusitis. Soft tissue laceration overlying the frontal sinuses. Electronically Signed: Scar Cervantes MD at 9:36 EST ,
--- NOTE | 2024-10-23 08:28 | ED.VIS.FALL ---
HPI HPI - Fall History of Present Illness Chief Complaint: Fall Informant: patient and spouse/S.O. Occured/Mechanism Occurred: Today Mechanism/Context: Yes same level fall Usually ambulates: Without assistance Pain/Injury Pain Location: head and face Current Severity: Moderate Maximum Severity: Moderate Associated Symptoms Associated Symptoms: Negative for Parasthesias, Weakness, Loss of function, Inability to ambulate or Loss of consciousness Narrative Narrative: 60-year-old female history of asthma and hypertension. She was getting out of bed this morning she did not realize her legs were chronic caught up in the blankets of the bed. She fell and struck her face on the dresser. Causing a laceration to the left lateral aspect of her nose and most likely breaking her nose with blood from both naris. Complaining of a headache. No other complaints. No neck pain. No weakness or numbness. No chest or abdominal pain. No pain to her extremities. She is on no blood thinners. This occurred around 630 this morning. She denies any LOC. Tetanus Immunization: 5-10 years Prior similar symptoms: No Recent Illness/Hospitalization: No [facility] Medical History Asthma HTN (hypertension) Home Medications ?Medication ?Instructions ?Recorded ?Last Taken ?Type fluticasone 500 mcg-salmeterol 50 1 puff inhalation DAILY 02/19/15 07/27/18 History mcg/dose blistr powdr for inhalation (Advair Diskus) loratadine 10 mg tablet (Allergy 10 mg PO DAILY 02/19/15 07/27/18 History Relief (loratadine)) tramadol 50 mg tablet 50 mg PO Q6H PRN PRN Pain 02/19/15 Unknown History bupropion HCl 300 mg 24 hr tablet, 300 mg PO DAILY 07/27/18 Unknown History extended release (Wellbutrin XL) diazepam 2 mg tablet 2 mg PO TID PRN PRN Vertigo ##10 07/27/18 Unknown Rx hydrochlorothiazide 12.5 mg capsule 12.5 mg PO DAILY 07/27/18 07/27/18 History verapamil 240 mg 24 hr 360 mg PO DAILY 07/27/18 07/27/18 History capsule,extended release ondansetron 4 mg disintegrating 4 mg PO Q8H PRN PRN Nausea #10 tabs 07/18/19 Unknown Rx tablet albuterol sulfate 2.5 mg/3 mL 2.5 mg (3 mL) inhalation Q4H PRN 08/10/22 Unknown Rx (0.083 %) solution for nebulization #25 vials albuterol sulfate 90 mcg/actuation 2 puff inhalation Q4H PRN PRN 08/10/22 Unknown Rx aerosol inhaler (Ventolin HFA) Wheezing ##1 doxycycline monohydrate 100 mg 100 mg PO BID #3 caps 08/10/22 Unknown Rx capsule prednisone 10 mg tablet See Taper PO DAILY #63 tabs 08/10/22 Unknown Rx Allergy/AdvReac Type Severity Reaction Status Date / Time aspirin Allergy Severe Anaphylaxis Verified 10/23/24 07:40 amoxicillin Allergy Intermediate Rash Verified 10/23/24 07:40 NSAIDS (Non-Steroidal Allergy Anaphylaxis Verified 10/23/24 07:40 Anti-Inflamma Social History Smoking Status: Never smoker ROS ROS ED ROS Narrative Denies recent illness. Constitutional Constitutional ED: Denies chills or fever(s) Eyes Eyes: Denies blurry vision ENT ENT ED: Denies ear pain Cardiovascular Cardiovascular: Denies chest pain Respiratory/Chest Respiratory/Chest: Denies cough or dyspnea Gastrointestinal Gastrointestinal: Denies abdominal pain Genitourinary Genitourinary ED: Denies dysuria or hematuria Musculoskeletal Musculoskeletal: Denies arthralgias or back pain Integumentary Denies abscess or Abrasions Neurologic Neurologic: Reports headache(s); Denies paresthesias or weakness Psychiatric Psychiatric: Denies anxiety Endocrine Endocrinology: Denies polydipsia Hematologic/Lymphatic Hematologic/Lymphatic: Denies easy bleeding Allergic/Immunologic Allergic/Immunologic ED: Denies mouth swelling EXAM Physical Exam Narrative Exam Narrative: 60-year-old female sitting upright in bed. in room. Vital signs are stable afebrile. H EENT exam pupils round reactive light extra motions are intact. She is swelling to her nose bruising tenderness to the midportion of her nose. Looks mildly deformed. There is blood in both nares but not significant active bleeding. Nasal congestion. Exam consistent with a nasal fracture. Patient has a superficial laceration that is vertical along the left side of her nose and face. It is not deep and involves the skin. I believe this can be appropriately repaired with Dermabond. She has early mild bruising along the sides of her nose. Dentition intact. Able to open and close her mouth any difficulty. Forehead and cheeks are nontender scalp nontender no hematoma. Neck nontender. Normal range of motion. Trachea midline. Back nontender. Spine nontender. No bruising. Lungs clear to auscultation bilaterally. Heart regular rhythm rate about 100 no murmur. Chest wall ribs nontender. Abdomen soft nontender. Pelvic girdle intact. Patient moving all 4 extremities. 5 out of 5 liquor blender strength. Dorsi plantarflexion intact. No deformity. Normal range of motion. Neurologically she is awake and alert. No focal motor deficits. Answer questions following commands. GCS 15. Const Vital Signs: 10/23/24 07:39 10/23/24 07:40 Temperature 97.8 F Temperature Source Oral Pulse Rate 103 H Respiratory Rate 8 L Respiratory Effort Normal Respiratory Depth Normal Respiratory Pattern Normal Blood Pressure 170/100 H Blood Pressure Mean 123 Pulse Ox 96 Oxygen Delivery Method Room Air Room Air Positive well nourished and well developed; Negative for cachectic, contractures or unkempt General Appearance ED: well developed and NAD; Negative for unkempt, cachectic or contractures Nutritional Appearance: Negative for cachectic HEENT Reports normocephalic HEENT Narrative: Nasal fracture. Bruising. Blood in the nares. Bony tenderness to the nose. Facial laceration to the left of the nose. Involving the skin. trauma, contusion and tenderness; Negative for atraumatic Eyes PERRL and EOMs intact bilaterally General Eye ED: Negative for pale conjunctiva or scleral icterus Neck full ROM, no lymphadenopathy and supple General: Negative for tenderness Chest Wall inspection of chest normal and palpation of chest normal Resp normal respiratory effort, no retractions and clear to auscultation bilaterally Auscultation: Negative for rales, rhonchi, wheezes or diminished lung sounds Cardio regular rate, regular rhythm, S1 normal heart sound, S2 normal heart sound and no murmurs Rate: Negative for bradycardia Rhythm: Negative for abnormal rhythm Bruits: Negative for other GI non-tender, non-distended and no masses Palpation: soft; Negative for guarding or rebound tenderness present Back/Spine no CVA tenderness General Back: Negative for CVA tenderness Cervical Spine: Negative for cervical spine tenderness Lumbar Spine / Lower Back: Negative for lumbar spinal tenderness Neuro oriented x3, CN's II-XII intact bilaterally, moves all extremities, no focal motor deficits and no sensory deficits noted Sherman Coma Scale: document GCS findings Spontaneous Obeys Commands Oriented 15 Sensorium / Orientation: alert, oriented to person, oriented to place and oriented to time; Negative for orientation impaired, confused or lethargic Motor Exam: strength 5/5 throughout Psych mental status grossly normal and thought process normal Appearance: Negative for unkempt Attitude: No agitated Mood & Affect: Negative for depressed, anxious or tearful Skin Skin Narrative: Facial laceration to the left of the nose. Vertical. Involves the skin is probably 1 to 2 inches in length. Does not gait. Lesions: no lesions Rashes: no rashes MDM MDM MDM Narrative Medical decision making narrative: 68-year-old fell getting out of bed striking her face on a dresser has a nasal fracture. Superficial skin laceration on her face I think I can Dermabond repair. Will obtain a CT of her head and facial bones. Tylenol for pain. She has no other injuries that I can see at this time. Repeat exam patient is doing well at 10 AM. Earlier I cleaned her laceration to the left side of her nose. With Shur-Clens. Washed with saline and closed using Dermabond and Steri-Strips. Patient tolerated procedure well. She will be discharged home. Close head injury. Outpatient follow-up with ENT for nasal fracture. History & Record Review Discussion w/independent historian: Patient and Family Radiography Diagnostic Testing: Clinical Impression(s) from Imaging Studies Brain CT 10/23/24 08:24 IMPRESSION: Nondisplaced comminuted nasal fracture. Pansinusitis. Laceration overlying the superior aspect of the nasal bones. Chronic involutional changes of the brain. Electronically Signed: Scar Cervantes MD at 9:41 EST , Facial/Sinus 10/23/24 08:24 IMPRESSION: Comminuted nondisplaced fracture of the nasal bones. Pansinusitis. Soft tissue laceration overlying the frontal sinuses. Electronically Signed: Scar Cervantes MD at 9:36 EST , Discharge Plan Triage Chief Complaint: Fall ED Provider: Kevin Ibarra Dx/Rx/DC Orders Clinical Impression: Fall, Head injury, Fracture of nasal bone, Facial laceration Instructions: ED Nose Fracture, with X-Ray, ED Head Injury (Adult), ED Nose Cut W Fx Skin Glue Prescriptions: No Action tramadol 50 MG tablet 50 mg PO Q6H PRN PRN (Reason: Pain) Patient Comments: pain fluticasone propion-salmeterol [Advair Diskus] 1 PUFF inhaler 1 puff inhalation DAILY Patient Comments: breathing loratadine [Allergy Relief (loratadine)] 10 MG tablet 10 mg PO DAILY Patient Comments: allergy hydrochlorothiazide 12.5 MG capsule 12.5 mg PO DAILY verapamil 240 MG capsule,ext rel. pellets 24 hr 360 mg PO DAILY bupropion HCl [Wellbutrin XL] 300 MG tablet extended release 24 hr 300 mg PO DAILY diazepam 2 MG tablet 2 mg PO TID PRN PRN (Reason: Vertigo) Qty: 10 0RF ondansetron 4 MG tablet 4 mg PO Q8H PRN PRN (Reason: Nausea) Qty: 10 0RF albuterol sulfate 2.5 mg /3 mL (0.083 %) solution for nebulization 2.5 mg inhalation Q4H PRN Qty: 25 0RF Rx Instructions: Use q4 hours and PRN for wheezing albuterol sulfate [Ventolin HFA] 90 mcg/actuation HFA aerosol inhaler 2 puff inhalation Q4H PRN PRN (Reason: Wheezing) Qty: 1 0RF prednisone 10 mg tablet See Taper PO DAILY Qty: 63 0RF Taper: Prednisone Taper 60 mg WITH BREAKFAST for 3 Days and 0 Hour 50 mg WITH BREAKFAST for 3 Days and 0 Hour 40 mg WITH BREAKFAST for 3 Days and 0 Hour 30 mg WITH BREAKFAST for 3 Days and 0 Hour 20 mg WITH BREAKFAST for 3 Days and 0 Hour 10 mg WITH BREAKFAST for 3 Days and 0 Hour Rx Instructions: Taper: 60mg x 3d, 50mg x3d, 40mg x3d, 30mg x3d, 20mg x3d, 10mg x3d doxycycline monohydrate 100 mg capsule 100 mg PO BID Qty: 3 0RF Primary Care Provider: Yesenia Suárez Referrals: Bhupendra Ocasio MD [Med Staff - Active Staff] - 1-2 Weeks Yesenia Suárez MD [Primary Care Provider] - Activity Restrictions/Additional Instructions: Ice to your face to decrease pain and swelling. You are good to have more bruising. Tylenol and/or Motrin for pain. In 7 to 10 days you can take the Steri-Strips off. That is to help hold the skin tight for the Dermabond and the laceration to come together nicely. Follow-up with the ear nose and throat doctor for further evaluation of your nasal fracture. Print Language: Bahraini Disposition Disposition: Home, Self Care
[2024-10-23] MEDS: Acetaminophen 500 MG Tablet 1000 MG PO (08:30)
[2024-10-23 10:12] VITALS: BP 148/79; PULSE 87; RESP 19; TEMP 36.9; O2SAT 100
== END 2024-10-23 10:13 | disposition home or self-care (01) ==
PROVIDERS: Emergency Provider Emergency Medicine; PCP Internal Medicine; Visit Provider Emergency Medicine
DX: S02.2XXA Fracture of nasal bones, initial encounter for closed fracture (principal); S01.81XA Laceration without foreign body of other part of head, initial encounter; W19.XXXA Unspecified fall, initial encounter
CPT/HCPCS: 12011; 70450; 70486; 99282

== ENCOUNTER 2024-11-06 06:52 | Day surgery (SDC) | payer MEDICARE, SELFPAY ==
[2024-11-03 11:48] LABS: Hematocrit 40.5 % (37-47); Hemoglobin 12.6 g/dL (12.0-15.0); Mean Corp Hgb Conc 31.1 g/dL (32-36); Mean Corpuscular Hgb 26.6 pg (27.0-32.0); Mean Corpuscular Volume 85.6 fL (81-99); Mean Platelet Vol. 8.8 fl (6.2-12.0); Platelet Count 328 K/mm3 (150-450); RBC Distribution Width CV 14.1 % (11.6-14.6); Red Blood Count 4.73 M/mm3 (4.2-5.4); White Blood Count 5.9 K/mm3 (4.4-11.0)
--- NOTE | 2024-11-03 12:06 | PAT.ANE_ITS ---
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 When Was Last Pacemaker Check QUESTION #4 FULL TEXT: You/Your Family Experience fever (hyperthermia) with Anesthesia Last Oral Intake Last Oral intake: Last Oral Intake NPO since Meds taken in AM with sips of water? Meds patient instructed to take am of surgery PONV PONV - circuit board repair technician: PONV - circuit board repair technician Female Yes 11/03/24 09:34 HX of Motion Sickness Yes 11/03/24 09:34 HX of N/V After Surgery Yes 11/03/24 09:34 Non-Smoker Yes 11/03/24 09:34 Duration of Surgery greater No 11/03/24 09:34 than 60 minutes Number of Risk Factors 4 11/03/24 09:34 PONV Score Severe Risk 11/03/24 09:34 Height & Weight Height & Weight: Anesthesia: Height & Weight Height 5 ft 7 in 10/23/24 07:40 Respiratory Assessment Respiratory Assessment - circuit board repair technician: Respiratory Tract Infection Hx - circuit board repair technician Hx Respiratory Tract Infection No 11/03/24 09:34 STOP Sleep Apnea STOP Sleep Apnea - circuit board repair technician: STOP Sleep Apnea - circuit board repair technician Hx Hypertension Yes: CONTROLLED ON MEDS 11/03/24 09:34 Hx Sleep Apnea No 11/03/24 09:34 CPAP No 02/19/15 08:05 BIPAP No 02/19/15 08:05 Do you snore loudly (louder Yes 11/03/24 09:34 than talking or can be heard Do you often feel tired/ No 11/03/24 09:34 fatigued/ sleepy during daytime? Has anyone observed you stop No 11/03/24 09:34 breathing during sleep? STOP Results Positive 11/03/24 09:34 QUESTION #5 FULL TEXT : Do you snore loudly (louder than talking or can be heard through closed doors)? 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 Specify any problems Hx of Preganancy in last 3 No 11/03/24 09:34 Months Nurse Filling Out Transfusion MGRIFFITH 11/03/24 09:34 & Questions: Date: 11/03/24 11/03/24 09:34 Time: 09:36 11/03/24 09:34 Patient unable to answer at this time (ie. confused, unrespo /Reproduction History /Reproductive History - circuit board repair technician: /Reproductive Hx- circuit board repair technician Hx Now No 11/03/24 09:34 Gestational Age (in weeks): EDC: Hx Hx Para Hx Section SAB No 11/03/24 09:34 [facility] Medical History (Updated 11/03/24 @ 09:48 by Dolores Ibarra) Sciatica, right side Wears glasses Depression Anxiety History of steroid therapy Arthritis Easy bruising Heartburn Non-smoker Shortness of breath on exertion Asthma HTN (hypertension) Home Medications ?Medication ?Instructions ?Recorded ?Last Taken ?Type fluticasone 500 mcg-salmeterol 50 1 puff inhalation DA LASHONDA PRN 02/19/15 07/27/18 History mcg/dose blistr powdr for wheezing inhalation (Advair Diskus) bupropion HCl 300 mg 24 hr tablet, 300 mg PO DAILY Unknown History extended release (Wellbutrin XL) hydrochlorothiazide 12.5 mg capsule 12.5 mg PO DAILY 1 07/27/18 History verapamil 240 mg 24 hr 360 mg PO DAILY 07/27/18 History capsule,extended release albuterol sulfate 2.5 mg/3 mL 2.5 mg (3 mL) inhalation Q4H PRN 08/10/22 Unknown Rx (0.083 %) solution for nebulization #25 vials albuterol sulfate 90 mcg/actuation 2 puff inhalation Q 4H PRN PRN 08/10/22 Unknown Rx aerosol inhaler (Ventolin HFA) Wheezing ##1 duloxetine 40 mg capsule,delayed 40 mg PO DAILY Unknown History release gabapentin 100 mg capsule 100 mg PO TID 11/03/24 Unkno wn History gabapentin 300 mg capsule 300 mg PO BID 11/03/24 Unkno wn History lisinopril 10 mg tablet 10 mg PO DAILY 11/03/24 Unkn own History montelukast 10 mg tablet 10 mg PO DAILY 11/03/24 Unkn own History (Singulair) Allergy/AdvReac Type Severity Reaction Status Date / Time aspirin Allergy Severe Anaphylaxis Verified 11/03/24 09:27 amoxicillin Allergy Intermediate Rash Verified 11/03/24 09:27 NSAIDS (Non-Steroidal Allergy Anaphylaxis Verified 11/03/24 09:27 Anti-Inflamma Surgical History (Updated 11/03/24 @ 09:34 by Dolores Ibarra) History of tonsillectomy and adenoidectomy History of colonoscopy History of nasal polypectomy History of hysterectomy History of History of cataract surgery Social History Smoking Status: Never smoker Audit: Pertinent Findings Pertinent Findings EKG Perinent findings: 08/10/2022 sinus tachycardia at [address] abnorm ality Stress test pertinent findings: 02/19/2015 negative EF 74% Recommendation Anesthesia Recommendation Anesthesia recommendation: OPTIMIZED for anesthesia
[2024-11-03 12:15] LABS: Anion Gap 6 (5-15); BUN 21 mg/dL (7-18); BUN/Creat Ratio 24.2 RATIO (10-20); Calcium,Total 9.6 mg/dL (8.5-10.1); Chloride 105 mmol/L (98-107); Creatinine, Serum 0.87 mg/dL (0.55-1.02); EST Glomerular Filtration Rate 69 mL/min (>60); Est Glom Filt Rate - Afr Amer 83 mL/min (>60); Glucose 93 mg/dL (74-106); Potassium 3.9 mmol/L (3.5-5.1); Sodium Level 139 mmol/L (136-145)
[2024-11-06] VITALS (8 sets, daily range): BP systolic 98–156; BP diastolic 66–101; PULSE 80–102; RESP 16–18; TEMP 36–36.6; O2SAT 93–97; BMI 41.3
[2024-11-06] MEDS: Oxymetazoline 0.05% 1 SPRAY SPRAY.BTL 2 SPRAY NASAL (07:00)
--- NOTE | 2024-11-06 07:14 | EKG12_ITS ---
Test Reason : PREOP Blood Pressure : */* mmHG Vent. Rate : 89 BPM Atrial Rate : 89 BPM P-R Int : 148 ms QRS Dur : 84 ms QT Int : 362 ms P-R-T Axes : * 53 58 degrees QTcB Int : 440 ms Normal sinus rhythm Normal ECG When compared with ECG of 10-Aug-2022 02:52, No significant change was found Confirmed by ALICIA JOEL, GILMER ([id number]), editor publications MOON HERNANDEZ ([id number]) on 11/09/2024 7:11:33 AM Referred By: Bhupendra Ocasio Confirmed By: GILMER VARGAS MD
[2024-11-06] MEDS: 0.9% Normal Saline (1000mL) 1,000 ML 15 ML IV (07:29)
--- NOTE | 2024-11-06 07:38 | PCM.PRE.AN2 ---
ASA Classification* ASA Classification ASA Classification: 3 Assessment & Plan Anesthesia* Anesthesia Assessment Anesthesia Assessment: Discussed sedation and/or anesthesia options, risks, benefits, and alternatives with patient/parents/legal guardian/POA. Questions invited. The patient/parents/legal guardian/POA seems to understand and agrees to proceed with anesthesia plan. Reviewed the physical assessment, medical history, allergy history and patient home medications list prior to surgery/procedure/anesthetic and documented any changes. Performed airway and anesthesia risk assessments. Anesthesia Type Anesthesia Type: General Anesthesia Focused Assessment* Temperature: 97.0 F Pulse Rate: 87 Blood Pressure: 156/75 Respiratory Rate: 18 Pulse Ox: 97 Airway Assessment Mouth opens: >3 cm Mallampati Score: II Focused Labs Anesthesia Preop lab: CBC WBC 5.9 K/mm3 (4.4-11.0) 11/03/24 11:36 11/03/24 RBC 4.73 M/mm3 (4.2-5.4) 11/03/24 11:36 11/03/24 Hgb 12.6 g/dL (12.0-15.0) 11/03/24 11:36 11/03/24 Hct 40.5 % (37-47) 11/03/24 11:36 11/03/24 Plt Count 328 K/mm3 (150-450) 11/03/24 11:36 11/03/24 CHEMISTRY Potassium 3.9 mmol/L (3.5-5.1) 11/03/24 11:36 11/03/24 Sodium 139 mmol/L (136-145) 11/03/24 11:36 11/03/24 BUN 21 mg/dL (7-18) H 11/03/24 11:36 11/03/24 Creatinine 0.87 mg/dL (0.55-1.02) 11/03/24 11:36 11/03/24 Glucose 93 mg/dL (74-106) 11/03/24 11:36 11/03/24 COAG Pre-Assessment Diagnosis/Proposed Procedure Planned Operative Procedure(s): Closed Reduction Nasal Fracture Anesthesia History 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 When Was Last Pacemaker Check QUESTION #4 FULL TEXT: You/Your Family Experience fever (hyperthermia) with Anesthesia Last Oral Intake Last Oral intake: Last Oral Intake NPO since 18:30 11/06/24 07:18 Meds taken in AM with sips of water? Meds patient instructed to take am of surgery PONV PONV - master control operator: PONV - master control operator Female Yes 11/03/24 09:34 HX of Motion Sickness Yes 11/03/24 09:34 HX of N/V After Surgery Yes 11/03/24 09:34 Non-Smoker Yes 11/03/24 09:34 Duration of Surgery greater No 11/03/24 09:34 than 60 minutes Number of Risk Factors 4 11/03/24 09:34 PONV Score Severe Risk 11/03/24 09:34 Height & Weight Height & Weight: Anesthesia: Height & Weight Height 5 ft 7 in 11/06/24 07:18 Weight: 119.8 kg 11/06/24 07:18 Body Mass Index (BMI) 41.3 11/06/24 07:18 Respiratory Assessment Respiratory Assessment - master control operator: Respiratory Tract Infection Hx - master control operator Hx Respiratory Tract Infection No 11/03/24 09:34 STOP Sleep Apnea STOP Sleep Apnea - master control operator: STOP Sleep Apnea - master control operator Hx Hypertension Yes: CONTROLLED ON MEDS 11/03/24 09:34 Hx Sleep Apnea No 11/03/24 09:34 CPAP No 02/19/15 08:05 BIPAP No 02/19/15 08:05 Do you snore loudly (louder Yes 11/03/24 09:34 than talking or can be heard Do you often feel tired/ No 11/03/24 09:34 fatigued/ sleepy during daytime? Has anyone observed you stop No 11/03/24 09:34 breathing during sleep? STOP Results Positive 11/03/24 09:34 QUESTION #5 FULL TEXT : Do you snore loudly (louder than talking or can be heard through closed doors)? 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 Specify any problems Hx of Preganancy in last 3 No 11/03/24 09:34 Months Nurse Filling Out Transfusion MGRIFFITH 11/03/24 09:34 & Questions: Date: 11/03/24 11/03/24 09:34 Time: 09:36 11/03/24 09:34 Patient unable to answer at this time (ie. confused, unrespo /Reproduction History /Reproductive History - master control operator: /Reproductive Hx- master control operator Hx Now No 11/03/24 09:34 Gestational Age (in weeks): EDC: Hx Hx Para Hx Section SAB No 11/03/24 09:34 Active Medications Active Medications: Current Medications Generic Name Dose Route Start Last Admin Trade Name Freq PRN Reason Stop Dose Admin Sodium Chloride 1,000 mls @ 15 mls/hr 11/06/24 07:05 11/06/24 07:29 IV 11/11/24 20:24 15 mls/hr .Q48H AJ Administration Protocol [facility] Medical History Sciatica, right side Wears glasses Depression Anxiety History of steroid therapy Arthritis Easy bruising Heartburn Non-smoker Shortness of breath on exertion Asthma HTN (hypertension) Home Medications ?Medication ?Instructions ?Recorded ?Last Taken ?Type fluticasone 500 mcg-salmeterol 50 1 puff inhalation DAILY PRN 02/19/15 11/05/24 History mcg/dose blistr powdr for wheezing inhalation (Advair Diskus) bupropion HCl 300 mg 24 hr tablet, 300 mg PO DAILY 07/27/18 11/05/24 History extended release (Wellbutrin XL) hydrochlorothiazide 12.5 mg capsule 12.5 mg PO DAILY 07/27/18 11/05/24 History verapamil 240 mg 24 hr 360 mg PO DAILY 07/27/18 11/05/24 History capsule,extended release albuterol sulfate 2.5 mg/3 mL 2.5 mg (3 mL) inhalation Q4H PRN 08/10/22 Unknown Rx (0.083 %) solution for nebulization #25 vials albuterol sulfate 90 mcg/actuation 2 puff inhalation Q4H PRN PRN 08/10/22 11/05/24 Rx aerosol inhaler (Ventolin HFA) Wheezing ##1 duloxetine 40 mg capsule,delayed 40 mg PO DAILY 11/03/24 11/05/24 History release gabapentin 100 mg capsule 100 mg PO TID 11/03/24 11/05/24 History gabapentin 300 mg capsule 300 mg PO BID 11/03/24 11/05/24 History lisinopril 10 mg tablet 10 mg PO DAILY 11/03/24 11/06/24 History montelukast 10 mg tablet 10 mg PO DAILY 11/03/24 11/05/24 History (Singulair) Allergy/AdvReac Type Severity Reaction Status Date / Time aspirin Allergy Severe Anaphylaxis Verified 11/06/24 07:16 amoxicillin Allergy Intermediate Rash Verified 11/06/24 07:16 NSAIDS (Non-Steroidal Allergy Anaphylaxis Verified 11/06/24 07:16 Anti-Inflamma Surgical History History of tonsillectomy and adenoidectomy History of colonoscopy History of nasal polypectomy History of hysterectomy History of History of cataract surgery Social History Smoking Status: Never smoker Review of Systems (Anesthesia) ROS Narrative System reviewed and no additional complaints, except as documented.
--- NOTE | 2024-11-06 08:18 | PCM.DC.SUM ---
Providers Primary Care Physician: Dr. Yesenia Suárez MD Reason For Visit: Closed Reduction Nasal Fracture Medications at Discharge Home Medications fluticasone 500 mcg-salmeterol 50 mcg/dose blistr powdr for inhalation (Advair Diskus) 1 puff inhalation DAILY PRN wheezing 02/19/15 bupropion HCl 300 mg 24 hr tablet, extended release (Wellbutrin XL) 300 mg PO DAILY 07/27/18 hydrochlorothiazide 12.5 mg capsule 12.5 mg PO DAILY 07/27/18 verapamil 240 mg 24 hr capsule,extended release 360 mg PO DAILY 07/27/18 albuterol sulfate 2.5 mg/3 mL (0.083 %) solution for nebulization 2.5 mg (3 mL) inhalation Q4H PRN #25 vials 08/10/22 albuterol sulfate 90 mcg/actuation aerosol inhaler (Ventolin HFA) 2 puff inhalation Q4H PRN PRN Wheezing ##1 08/10/22 duloxetine 40 mg capsule,delayed release 40 mg PO DAILY 11/03/24 gabapentin 100 mg capsule 100 mg PO TID 11/03/24 gabapentin 300 mg capsule 300 mg PO BID 11/03/24 lisinopril 10 mg tablet 10 mg PO DAILY 11/03/24 montelukast 10 mg tablet (Singulair) 10 mg PO DAILY 11/03/24 Weight / BMI Weight Weight: 119.8 kg Body Mass Index (BMI) 41.3 ABG / Lab / Microbiology Data 11/03/24 11:36 11/03/24 11:36 D/C Instructions Discharge Diet: No restrictions Discharge Activity: Return to Normal Activity Additional Activity Instructions: Keep splint on as long as possible DC O2, CPAP, BIPAP Needs Home O2 Discharge instructions: No Please Follow Up With: Bhupendra Ocasio MD When: as needed Meaningful Use Info Meaningful Use Meaningful Use Diagnoses (Choose all that apply): None applicable Ischemic Stroke Statin Dosing Therapy Reference: STATIN DOSE THERAPY REFERENCE: * Patients > 75 years receive moderate or high dose statin therapy. * Patients 75 years or YOUNGER should receive HIGH intensity statin dose unless contraindicated. You will be required to document reason for non-treatment if statin daily dose does not meet guidelines. HIGH DOSE STATIN THERAPY DAILY Atorvastatin > than or = to 40 mg Rosuvastatin > than or = to 20 mg Amlodipine + Atorvastatin > than or = to 2.5/40 mg Ezetimibe + Simvastatin 10/80 mg Simvastatin 80mg Discharge Plan Admission Attending Provider: Bhupendra Ocasio Primary Care Provider: Yesenia Suárez Instructions Print Language: Swedish Discharge Orders/Prescriptions Prescriptions: No Action fluticasone propion-salmeterol [Advair Diskus] 1 PUFF inhaler 1 puff inhalation DAILY PRN (Reason: wheezing) Patient Comments: breathing hydrochlorothiazide 12.5 MG capsule 12.5 mg PO DAILY verapamil 240 MG capsule,ext rel. pellets 24 hr 360 mg PO DAILY bupropion HCl [Wellbutrin XL] 300 MG tablet extended release 24 hr 300 mg PO DAILY albuterol sulfate 2.5 mg /3 mL (0.083 %) solution for nebulization 2.5 mg inhalation Q4H PRN Qty: 25 0RF Rx Instructions: Use q4 hours and PRN for wheezing albuterol sulfate [Ventolin HFA] 90 mcg/actuation HFA aerosol inhaler 2 puff inhalation Q4H PRN PRN (Reason: Wheezing) Qty: 1 0RF montelukast [Singulair] 10 mg tablet 10 mg PO DAILY lisinopril 10 mg tablet 10 mg PO DAILY gabapentin 300 mg capsule 300 mg PO BID gabapentin 100 mg capsule 100 mg PO TID duloxetine 40 mg capsule,delayed release(DR/EC) 40 mg PO DAILY Other Ambulatory Orders: 12 Lead EKG (Routine) Timeframe: 20241106 Location: None Selected Ordered By: Dr. Bhupendra Ocasio Referrals / Follow Up: Yesenia Suárez MD [Primary Care Provider] - Disposition Disposition (needs filled in before D/C Order can be placed): Home, Self Care
--- NOTE | 2024-11-06 09:00 | OP.PCM_ITS ---
Operative Report (Standard) Operative Information Date of Procedure: 11/06/24 Pre-Operative Diagnosis: nasal fracture Post-Operative Diagnosis: same Surgery/Procedure Performed: closed nasal reduction shopper marketing manager: No Type of Anesthesia: General RN Documented Start/Stop Times: Operation Date: 11/06/24 08:30 Case Time Into Pre-Op 11/06/24 07:00 Out of Pre-Op 11/06/24 08:35 Anesthesia Start 11/06/24 08:39 Into Room 11/06/24 08:39 Procedure Start 11/06/24 08:52 Procedure End 11/06/24 08:58 Procedure Start Time: 08:52 Procedure Stop Time: 08:58 Select all DRAINS/GRAFTS/IMPLANTS that apply: None Estimated Blood Loss: minimal Specimen collected: No Description of surgery: The patient was taken the operating room on 11/06/2024. She was placed in the supine position on the operating room table. She was given sufficient general anesthesia. The head of bed was elevated 30 degrees. An Afrin pledget was placed in the patient's left nasal chamber. After sufficient vasoconstriction the pledget was removed. A Wayland elevator inserted in the patient's left nasal cavity and the bones were elevated laterally. I then placed pressure on the right nasal dorsum until I had absolute midline reduction. Hemostasis was then achieved with Afrin pledgets. Steri-Strips and a Roscoe splint were then applied. The patient was then awoken and brought to the recovery room in stable condition. Blood loss minimal, replacement none. Sponge, needle, instrument count correct at the end of the procedure. Surgical Findings: depressed nasal fracture Complications Complications: No
--- NOTE | 2024-11-06 09:42 | PCM.POST.ANE ---
Anesthesia: Postop Eval I Current Vital Signs Temperature: 97 F Pulse Rate: 98 Blood Pressure: 98/74 Respiratory Rate: 16 Pulse Ox: 95 Oxygen Delivery Method: Room Air Assessment Airway patent: Yes Spontaneous unlabored respirations: Yes Mental status: Awake and Calm nausea: No Vomiting: No Anesthesia Complication: No Fluid Hydration Crystalloid volume administer (ml): 400 Total IV fluid infused: 400 Progress Note Anesthesia document: Postop Eval 1 completed: Yes
[2024-11-06] MEDS: Acetaminophen 325 MG Tablet 650 MG PO (10:08)
--- NOTE | 2024-11-06 10:43 | POSTOPAN2_ITS ---
Anesthesia Postop Eval I Sum Postop Eval Completion status Anesthesia document: Postop Eval 1 completed: Yes Anesthesia Postop Eval I Summary Anesthesia Postop Eval I Summary: Anesthesia Postop Eval I: Assessment Summary Airway patent Yes 11/06/24 09:42 COMPUTER SUPPORT [email or web address] Spontaneous unlabored Yes 11/06/24 09:42 COMPUTER SUPPORT TECHNICIANRACHELL respirations Mental status Awake,Calm 11/06/24 09:42 COMPUTER SUPPORT TECHNICIAN.LIO nausea No 11/06/24 09:42 COMPUTER SUPPORT TECHNICIAN.LIO Vomiting No 11/06/24 09:42 COMPUTER SUPPORT TECHNICIANRACHELL Anesthesia Postop Eval I: Fluid Summary Crystalloid volume administer 400 11/06/24 09:42 COMPUTER SUPPORT TECHNICIAN.LIO (ml) Colloids volume administered ( ml) Blood Product volume administered (ml) Total IV fluid infused 400 11/06/24 09:42 COMPUTER SUPPORT TECHNICIANRACHELL Anesthesia Postop Eval I: Summary Notes Anesthesia Complication No 11/06/24 09:42 KELLEY Anesthesia Complication Comment: Post-operative progress note Anesthesia: Postop Eval II Evaluation Mental status: Awake Pain Level: 0 nausea: No Vomiting: No
--- NOTE | 2024-11-06 10:43 | PCM.POSTANE2 ---
Anesthesia Postop Eval I Sum Postop Eval Completion status Anesthesia document: Postop Eval 1 completed: Yes Anesthesia Postop Eval I Summary Anesthesia Postop Eval I Summary: Anesthesia Postop Eval I: Assessment Summary Airway patent Yes 11/06/24 09:42 LEATHER [email or web address].[email or web address] Spontaneous unlabored Yes 11/06/24 09:42 LEATHER CURRIERRACHELL respirations Mental status Awake,Calm 11/06/24 09:42 LEATHER CURRIER.LIO nausea No 11/06/24 09:42 LEATHER CURRIER.LIO Vomiting No 11/06/24 09:42 LEATHER CURRIERRACHELL Anesthesia Postop Eval I: Fluid Summary Crystalloid volume administer 400 11/06/24 09:42 LEATHER CURRIER.LIO (ml) Colloids volume administered ( ml) Blood Product volume administered (ml) Total IV fluid infused 400 11/06/24 09:42 LEATHER CURRIERRACHELL Anesthesia Postop Eval I: Summary Notes Anesthesia Complication No 11/06/24 09:42 KELLEY Anesthesia Complication Comment: Post-operative progress note Anesthesia: Postop Eval II Evaluation Mental status: Awake Pain Level: 0 nausea: No Vomiting: No
== END 2024-11-06 10:10 | disposition home or self-care (01) ==
LOC: SDC 06:53 → AC 06:53
PROVIDERS: PCP Internal Medicine; Referring Provider Otolaryngology; Visit Provider Otolaryngology
PROC: 0NSBXZZ Reposition Nasal Bone, External Approach (ICD-10-PCS; CPT 21315; principal; 2024-11-06 08:25)
DX: S02.2XXA Fracture of nasal bones, initial encounter for closed fracture (principal); J34.2 Deviated nasal septum; I10 Essential (primary) hypertension; E78.00 Pure hypercholesterolemia, unspecified; J45.909 Unspecified asthma, uncomplicated; Z79.899 Other long term (current) drug therapy; Z79.51 Long term (current) use of inhaled steroids; X58.XXXA Exposure to other specified factors, initial encounter
CPT/HCPCS: 21315; 00160; 36415; 80048; 85027; 93005; J2405

== ENCOUNTER → 2025-03-14 | Outpatient (CLI) | payer MEDICARE, SELFPAY ==
--- NOTE | 2025-03-14 11:05 | MRI_ITS ---
PROCEDURE: SPINE LUMBAR (ROUTINE) 03/14/2025 REASON FOR EXAM: PAIN, RADICULOPATHY TECHNIQUE: Multiplanar and multisequence images were obtained without IV contrast administration. COMPARISON: 01/25/2025. FINDINGS: Mild multilevel disc dehydration. Mild multilevel disc space narrowing. Scattered uncomplicated hemangiomas of the lower thoracic and lumbar vertebral bodies with the largest measuring 1.6 cm. There is normal signal intensity from the remaining visualized bone marrow without evidence of replacement or acute fracture. The conus is unremarkable. Normal lumbar lordosis. Evaluation of the individual levels revealed the following: L5-S1: Grade 1 retrolisthesis measuring 3.2 mm. Mild diffuse disc bulge. Superimposed broad-based central/right paracentral disc protrusion measuring 3.5 mm. Mild bilateral facet joint arthropathy and ligamentum flavum hypertrophy. The spinal canal is not narrowed. Mild bilateral neural foraminal narrowing. L4-5: There is minimal diffuse disc bulge. The spinal canal is not narrowed. There is no evidence of neural foramina narrowing. L3-4: There is minimal diffuse disc bulge. The spinal canal is not narrowed. There is no evidence of neural foramina narrowing. L2-3: There is minimal diffuse disc bulge. The spinal canal is not narrowed. There is no evidence of neural foramina narrowing. L1-2: There is minimal diffuse disc bulge. The spinal canal is not narrowed. There is no evidence of neural foramina narrowing. Normal visualized paraspinous soft tissue structures. Bilateral scattered simple renal cysts are noted with the largest measuring 3.2 cm. MRI/Spine Lumbar (Routine) IMPRESSION: Degenerative disc disease. Reading [facility]
== END | disposition home or self-care (01) ==
PROVIDERS: PCP Internal Medicine; Referring Provider Student in an Organized Health Care Education/Training Program; Visit Provider Student in an Organized Health Care Education/Training Program
DX: M54.16 Radiculopathy, lumbar region (principal)
CPT/HCPCS: 72148

== ENCOUNTER → 2025-05-09 | Outpatient (CLI) | payer MEDICARE, SELFPAY ==
--- NOTE | 2025-05-09 14:00 | NEURO ---
NCS and/or EMG Patient Report Ordering Doctor: Amrik Vasquez DATE OF SERVICE: 05/09/25 Michelle presents with complaints of pain and weakness in the legs. She has ongoing lower back pain. Electrodiagnostic findings: Peroneal motor nerve demonstrates normal distal latency, amplitude and conduction velocity bilaterally. Tibial motor response is within normal limits bilaterally. Sensory responses are within normal limits bilaterally. Normal peroneal and tibial F?waves. H?reflex is prolonged bilaterally. Needle EMG testing was performed the lower limbs as well as the lumbar paraspinals. All muscles tested showed no evidence of denervation with normal motor unit potentials. Electrodiagnostic impression: This a normal electrodiagnostic study of the lower limbs. There is no electrodiagnostic evidence for peripheral neuropathy or lumbosacral radiculopathy. Multi Select Codes Neurology Neurology Interp Codes: 12857-99 Musc test done w/n test comp (interp) (2) and 42418-36 Nrv cndj test 9-10 studies (interp)
== END | disposition home or self-care (01) ==
LOC: PSN 12:12
PROVIDERS: PCP Internal Medicine; Referring Provider Orthopaedic Surgery Orthopaedic Surgery of the Spine; Visit Provider Orthopaedic Surgery Orthopaedic Surgery of the Spine
DX: M54.16 Radiculopathy, lumbar region (principal)
CPT/HCPCS: 95886; 95911